=== PATIENT | female | born 1945 | race Caucasian/White ===

== ENCOUNTER 2017-09-01 09:12 | Day surgery (SDC) | payer MEDICARE ==
[2017-08-31 10:25] VITALS: BMI 35.6
[2017-09-01] MEDS ORDERED: Bupivacaine/Epinephrine 0.25% 30 ML VIAL ONE (10:04)
[2017-09-01] MEDS ORDERED: Midazolam HCl 2 mg/2 ml Vial ONE ×2 (10:36→11:06)
[2017-09-01 10:50] LABS: #Basophils 0.1 thou/uL (0.0-0.2); #Eosinphils 0.1 thou/uL (0.0-0.7); #Lymphocytes 2.2 thou/uL (1.20-3.40); #Monocytes 0.6 thou/uL (0.11-0.59); #Neutrophils 3.7 thou/uL (1.40-6.50); %Basophils 1.2 % (0.0-1.0); %Eosinophils 1.9 % (0.0-10.0); %Lymphocytes 33.1 % (21.0-51.0); %Monocytes 8.6 % (0.0-10.0); %Neutrophils 55.2 % (42.0-75.0); Hemoglobin 13.7 g/dL (12.0-16.0); Mean Corpuscular HGB CONC 32.4 g/dL (32.0-36.0); Mean Corpuscular Hemoglobin 29.9 pg (27.0-31.0); Mean Corpuscular Volume 92.4 fl (81.0-99.0); Platelet Count 233 thou/uL (130-400); RBC Distribution Width 12.6 % (11.5-14.5); Red Blood Cell (RBC) Count 4.59 mill/uL (4.20-5.40); White Blood Cell (WBC) Count 6.7 thou/uL (4.8-10.8)
[2017-09-01] MEDS ORDERED: CEFAZOLIN/Water 2 GM/20 ML SYRINGE ONE (11:00)
[2017-09-01 11:05] LABS: Anion Gap 11 mmol/L (10-20); BUN (Urea Nitrogen) 13 mg/dL (9.8-20.1); Calc. Creatinine Clearance 100 mL/min (70-130); Calcium 9.8 mg/dL (7.8-10.44); Carbon Dioxide 26 mmol/L (23-31); Chloride 108 mmol/L (98-107); Estimated GFR-MDRD 79; Glucose 100 mg/dL (80-115); Potassium 4.3 mmol/L (3.5-5.1); Sodium 141 mmol/L (136-145)
[2017-09-01] MEDS ORDERED: Ketamine 50 MG/ML VIAL ONE (11:06)
[2017-09-01] MEDS ORDERED: Fentanyl 250 MCG/5 ML VIAL ONE (11:06)
[2017-09-01] MEDS ORDERED: Propofol 500 MG/50 ML VIAL ONE (11:06)
--- NOTE | 2017-09-01 13:47 | RAD ---
CHEST 1 VIEW: HISTORY: MediPort placement. FINDINGS: Cardiac silhouette is unremarkable. Pulmonary vasculature is upper limits of normal. The tip of a r ight subclavian MediPort projects over the superior vena cava. No evidence of pneumothorax. Calcifi ed granulomata are consistent with healed granulomatous disease. Hemostasis clips overlie the left a xilla. IMPRESSION: Right subclavian MediPort is in good radiographic position. POS: [facility]
--- NOTE | 2017-09-05 15:31 | OP ---
PROCEDURE: Right subclavian MediPort placement on 09/01/2017 PREOPERATIVE DIAGNOSIS: Breast cancer. POSTOPERATIVE DIAGNOSIS: Breast cancer. HISTORY: Ms. 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 A MediPort is required for postoperative chemotherapy and the recommendation was made to place this on the right due to history of lymph node dissection on the left. PROCEDURE IN DETAIL: After informed consent was obtained and appropriate preoperative antibiotics administered, the patient was taken to the operating room. She was placed in supine position and anesthesia was administered. She was prepped and draped in a standard sterile fashion and placed in the Trendelenburg position. The right subclavian vein was accessed by the typical approach with excellent flow of dark venous non-pulsatile blood on the first attempt. Wire was easily threaded and confirmed by x-ray to be in the superior vena cava. The needle was withdrawn leaving the wire in place. Additional local anesthesia was infused lateral and inferior to the access sites. A skin incision was made and a subcutaneous pocket created. A low profile MediPort was placed within the pocket and secured with nylon sutures. The tract was dilated over a wire and the sheath left in place with the dilator and the wire removed. The clamped MediPort tubing was placed through the sheath, which was then split and removed leaving the catheter in place. Fluoroscopy was used to make sure the end of the tubing was in appropriate position in the superior vena cava. The MediPort tubing was then clamped at the access site and cut and secured to the MediPort hub. The MediPort easily aspirated and easily flushed without resistance and the curve of the catheter was confirmed to be smooth. The subcutaneous tissues were closed with 3-0 Monocryl suture and the skin was closed with 4-0 subcuticular Monocryl suture. Dermabond dressings were applied and the patient was extubated, and taken to the recovery room in good condition. Estimated blood loss was minimal. There were no complications, there were no specimens. CAROL
== END 2017-09-01 13:14 | disposition home or self-care (01) ==
LOC: SDC 09:12
PROVIDERS: ATTEND Surgery
PROC: 02HV33Z Insertion of Infusion Device into Superior Vena Cava, Percutaneous Approach (ICD-10-PCS; principal; 2017-09-01)
PROC: B5181ZA Fluoroscopy of Superior Vena Cava using Low Osmolar Contrast, Guidance (ICD-10-PCS; 2017-09-01)
DX: C50.912 Malignant neoplasm of unspecified site of left female breast (principal); C50.911 Malignant neoplasm of unspecified site of right female breast; E03.9 Hypothyroidism, unspecified; E78.5 Hyperlipidemia, unspecified; I10 Essential (primary) hypertension; H81.20 Vestibular neuronitis, unspecified ear; R43.9 Unspecified disturbances of smell and taste; Z79.899 Other long term (current) drug therapy; Z17.0 Estrogen receptor positive status [ER+]; Z90.13 Acquired absence of bilateral breasts and nipples; Z80.3 Family history of malignant neoplasm of breast
CPT/HCPCS: 36561; 71045; 80048; 85025; C1788; 76000; J1642; J2250; J2704; J3010

== ENCOUNTER 2018-06-07 10:06 | Outpatient (CLI) | payer MEDICARE ==
--- NOTE | 2018-06-07 11:35 | ULT ---
FOCUSED ULTRASOUND OF THE RIGHT CHEST WALL: DATE: 06/07/2018. COMPARISON: None. HISTORY: Chest wall mass, prior mastectomy. FINDINGS: Focused ultrasound is obtained of the anterior right chest wall along post mastectomy site in the are a of palpable concern. The provided imaging demonstrates a round 4 x 5 x 4 mm lesion which is deep t o the postoperative scar per the performing integration solution architect. It demonstrates no internal blood flow or s olid components and is consistent with a simple cystic abnormality. IMPRESSION: Deep to the postoperative site, there is a 4-5 mm cystic lesion. This likely represents a postoperat anil small seroma. Clinical followup is advised. If this abnormality enlarges, repeat ultrasound and /or ultrasound-guided aspiration could be performed. POS: [facility]
== END 2018-06-07 10:07 | disposition home or self-care (01) ==
LOC: SCSULT 10:06
PROVIDERS: ATTEND Internal Medicine Hematology & Oncology
DX: R22.2 Localized swelling, mass and lump, trunk (principal); C50.812 Malignant neoplasm of overlapping sites of left female breast

== ENCOUNTER 2019-02-28 09:39 | Outpatient (CLI) | payer MEDICARE ==
--- NOTE | 2019-02-28 11:02 | BD ---
DEXA BONE DENSITY SCAN: DATE: 02/28/2019. HISTORY: Postmenopausal female undergoing screening for osteoporosis. FINDINGS: Lumbar Spine: BMD (g/cm2) L1 0.972 T-Score: -0.2 L2 0.915 T-Score: -1.0 L3 0.967 T-Score: -1.1 L4 0.958 T-Score: -0.2 L1-L4 0.953 T-Score: -0.4 Femoral Neck: 0.717 T-Score: -1.7 Total femoral neck: 0.906 T-Score: -1.3 The [employer] fracture risk assessment tool reports a 10 year fracture risk at 8.9% for major osteoporotic fracture and 1.1% for hip fracture. IMPRESSION: Normal lumbar spine mineral density. Femoral neck osteopenia, correlating with a moderately increased risk for fracture. Transcribed Date/Time: 02/28/2019 11:40 AM
== END 2019-02-28 09:40 | disposition home or self-care (01) ==
LOC: BICMAMMO 09:39
PROVIDERS: ATTEND Internal Medicine Hematology & Oncology
DX: Z13.820 Encounter for screening for osteoporosis (principal); C50.919 Malignant neoplasm of unspecified site of unspecified female breast; T38.6X5A Adverse effect of antigonadotrophins, antiestrogens, antiandrogens, not elsewhere classified, initial encounter; M85.89 Other specified disorders of bone density and structure, multiple sites
CPT/HCPCS: 77080